=== PATIENT | female | born 1945 | race Caucasian/White ===

== ENCOUNTER 2020-09-03 11:50 | Inpatient (IN) ==
[2020-09-03] MEDS ORDERED: Ondansetron 4 MG/2 ML VIAL IVP ONE (12:12)
[2020-09-03] MEDS ORDERED: 0.9 % Sodium Chloride 1,000 ML IVC ONE (12:12)
[2020-09-03 12:57] LABS: Basophils % 0.3 %; Eosinophils # 0.1 K/mcL (0.0-0.6); Hematocrit 38.2 % (35.3-44.9); Hemoglobin 12.8 g/dL (11.5-15.4); Immature Granulocytes % 0.6 % (0-4); Lymphocytes # 0.9 K/mcL (0.6-4.6); Lymphocytes % 6.5 %; Mean Corpuscular HGB Conc 33.5 g/dL (31.6-35.5); Mean Corpuscular Hemoglobin 29.7 pg (28.0-33.3); Mean Corpuscular Volume 88.6 fL (83.0-100.0); Mean Platelet Volume 9.8 fL (9.4-12.4); Monocytes # 1.4 K/mcL (0.0-1.3); Monocytes % 10.6 %; Neutrophils # 10.5 K/mcL (1.6-8.9); Platelet Count 355 K/mcL (140-400); Red Blood Count 4.31 M/mcL (3.82-4.97); Red Cell Distribution Width 14.2 % (11.5-14.5)
[2020-09-03] MEDS ORDERED: Isovue-370 500 ML BOTTLE IVP ONE (12:59)
[2020-09-03 13:28] LABS: Alanine Aminotransferase 122 Units/L (7-52); Albumin 3.9 g/dL (3.5-5.7); Alkaline Phosphatase 177 Units/L (34-104); Amylase 37 Units/L (29-103); Aspartate Amino Transferase 168 Units/L (13-39); BUN/Creatinine Ratio 25 (6-26); Bilirubin,Direct 0.2 mg/dL (0.0-0.2); Bilirubin,Indirect 0.4 mg/dL (0.0-1.0); Bilirubin,Total 0.6 mg/dL (0.3-1.0); Blood Urea Nitrogen 35 mg/dL (8-23); Calcium 9.2 mg/dL (8.6-10.3); Carbon Dioxide 28 mEq/L (23-29); Chloride 91 mEq/L (98-107); Globulin 3.8 g/dL (2.4-3.5); Glucose 91 mg/dL (70-105); Lipase 6 Units/L (11-82); Osmolality,Calculated 290 (280-300); Potassium 3.2 mEq/L (3.5-5.1); Sodium 136 mEq/L (136-145); Total Protein 7.7 g/dL (6.4-8.9); Troponin I < 0.03 ng/mL (< 0.04); eGFR For African Americans 44 (> 60); eGFR For Non-African Americans 37 (> 60)
[2020-09-03 13:40] LABS: Adenovirus Not Detected (Not Detect); Bordetella Pertussis Not Detected (Not Detect); Chlamydophila pneumoniae Not Detected (Not Detect); Coronavirus 229E Not Detected (Not Detect); Coronavirus HKU1 Not Detected (Not Detect); Coronavirus NL63 Not Detected (Not Detect); Coronavirus OC43 Not Detected (Not Detect); Human Metapneumovirus Not Detected (Not Detect); Human Rhinovirus/Enterovirus Not Detected (Not Detect); Influenza A Subtype 2009 H1 Not Detected (Not Detect); Influenza B Not Detected (Not Detect); Mycoplasma pneumoniae Not Detected (Not Detect); Parainfluenza Virus 1 Not Detected (Not Detect); Parainfluenza Virus 2 Not Detected (Not Detect); Parainfluenza Virus 3 Not Detected (Not Detect); Parainfluenza Virus 4 Not Detected (Not Detect); Respiratory Syncytial Virus Not Detected (Not Detect); SARS-CoV-2 Not Detected (Not Detect)
[2020-09-03] MEDS ORDERED: *HR* FentaNYL (PF) 100 MCG/2 ML VIAL IVP STA (13:45)
[2020-09-03 14:40] LABS: Bacteria,Urine Few per hpf (None-Few); Bilirubin,Urine Negative (Negative); Blood,Urine Negative (Negative); Clarity,Urine Turbid (Clear); Color,Urine Yellow (Yellow); Glucose,Urine (UA) Normal (Normal); Hyaline Casts,Urine Many per lpf (None Seen); Ketones,Urine 10 mg/dL (Negative); Leukocyte Esterase,Urine Large (Negative); Mucus,Urine Few per lpf (None-Few); Nitrite,Urine Negative (Negative); PH,Urine 5.5 pH Units (5.0-8.0); Protein,Urine 50 mg/dL (Neg-Trace); Renal Epithelial Cells,Urine Few per hpf (None-Few); Specific Gravity,Urine 1.021 (1.010-1.025); Squamous Epithelial Cell,Urine Moderate per hpf (None-Few); Transitional Epi Cells,Urine Few per hpf (None-Few); WBC,Urine 15-30 per hpf (0-3)
[2020-09-03] MEDS ORDERED: *HR* Promethazine 25 MG/ML VIAL IM ONE (15:49)
[2020-09-03] MEDS ORDERED: Naloxone 0.4 MG/ML INJ IVP PRN (17:02)
[2020-09-03] MEDS ORDERED: Mag Hydrox/Al Hydrox/Simeth 30 ML UDC PO PRN (17:02)
[2020-09-03] MEDS ORDERED: Melatonin 3 MG TABLET PO PRN (17:02)
[2020-09-03] MEDS: 0.9 % Sodium Chloride 1,000 ML IVC SCH (19:00)
[2020-09-03] MEDS: Ondansetron ODT 4 MG TAB.RAPDIS SL PRN (19:00)
[2020-09-03] MEDS: Pantoprazole 40 MG VIAL IVP SCH (19:00)
[2020-09-03] MEDS: cefTRIAXone 1,000 MG in Water for inj. (sterile) 10 ML IVP SCH (19:00)
[2020-09-03 19:25] LABS: Hepatitis B Surface Antigen Nonreactive (Nonreactive)
[2020-09-03 19:53] LABS: Hepatitis B Core IgM Nonreactive (Nonreactive)
[2020-09-03 19:54] LABS: Hepatitis A Antibody IgM Nonreactive (Nonreactive); Hepatitis C Virus Antibody Nonreactive (Nonreactive)
[2020-09-04] MEDS: Pantoprazole 40 MG VIAL IVP SCH ×2 (05:20→17:59)
[2020-09-04] MEDS: 0.9 % Sodium Chloride 1,000 ML IVC SCH (05:20)
[2020-09-04 05:41] LABS: Hematocrit 33.1 % (35.3-44.9); Mean Corpuscular HGB Conc 32.3 g/dL (31.6-35.5); Mean Corpuscular Volume 89.7 fL (83.0-100.0); Mean Platelet Volume 9.5 fL (9.4-12.4); Platelet Count 290 K/mcL (140-400); Red Blood Count 3.69 M/mcL (3.82-4.97); Red Cell Distribution Width 14.2 % (11.5-14.5); White Blood Count 12.7 K/mcL (4.3-11.1)
[2020-09-04 05:43] LABS: Hemoglobin 10.7 g/dL (11.5-15.4)
[2020-09-04 06:04] LABS: Alanine Aminotransferase 106 Units/L (7-52); Albumin 3.3 g/dL (3.5-5.7); Albumin/Globulin Ratio 1.1 (1.1-2.2); Alkaline Phosphatase 156 Units/L (34-104); Aspartate Amino Transferase 154 Units/L (13-39); BUN/Creatinine Ratio 29 (6-26); Bilirubin,Total 0.5 mg/dL (0.3-1.0); Blood Urea Nitrogen 30 mg/dL (8-23); Calcium 8.5 mg/dL (8.6-10.3); Carbon Dioxide 28 mEq/L (23-29); Chloride 98 mEq/L (98-107); Globulin 3.1 g/dL (2.4-3.5); Glucose 94 mg/dL (70-105); Osmolality,Calculated 290 (280-300); Potassium 3.8 mEq/L (3.5-5.1); Sodium 137 mEq/L (136-145); Total Protein 6.4 g/dL (6.4-8.9); eGFR For African Americans > 60 (> 60); eGFR For Non-African Americans 51 (> 60)
[2020-09-04] MEDS: Ondansetron ODT 4 MG TAB.RAPDIS SL PRN ×2 (08:30→16:46)
[2020-09-04] MEDS: cefTRIAXone 1,000 MG in Water for inj. (sterile) 10 ML IVP SCH (18:00)
[2020-09-05 01:52] LABS: Hematocrit 31.9 % (35.3-44.9); Hemoglobin 10.8 g/dL (11.5-15.4); Mean Corpuscular HGB Conc 33.9 g/dL (31.6-35.5); Mean Corpuscular Volume 88.6 fL (83.0-100.0); Mean Platelet Volume 9.3 fL (9.4-12.4); Platelet Count 264 K/mcL (140-400); Red Cell Distribution Width 14.5 % (11.5-14.5); White Blood Count 12.3 K/mcL (4.3-11.1)
[2020-09-05 02:12] LABS: BUN/Creatinine Ratio 28 (6-26); Blood Urea Nitrogen 25 mg/dL (8-23); Calcium 8.5 mg/dL (8.6-10.3); Carbon Dioxide 28 mEq/L (23-29); Chloride 98 mEq/L (98-107); Glucose 89 mg/dL (70-105); Osmolality,Calculated 290 (280-300); Potassium 3.9 mEq/L (3.5-5.1); Sodium 138 mEq/L (136-145); eGFR For African Americans > 60 (> 60); eGFR For Non-African Americans > 60 (> 60)
[2020-09-05] MEDS: Ondansetron ODT 4 MG TAB.RAPDIS SL PRN (02:48)
[2020-09-05] MEDS: Pantoprazole 40 MG VIAL IVP SCH ×2 (05:12→18:27)
[2020-09-05] MEDS: amLODIPine 5 MG TABLET PO SCH (09:24)
[2020-09-05] MEDS: Cyanocobalamin (B-12) 1,000 MCG TABLET PO SCH (09:24)
[2020-09-05] MEDS: Cholecalciferol (D-3) 1,000 UNIT (25MCG) TABLET PO SCH (09:24)
[2020-09-05] MEDS: Ascorbic Acid 500 MG TABLET PO SCH (09:24)
[2020-09-05] MEDS: Vitamin E 200 UNIT (90MG) CAPSULE PO SCH (09:24)
[2020-09-05] MEDS ORDERED: *HR* Propofol 200 MG/20 ML VIAL IVP ONE (10:59)
[2020-09-05] MEDS ORDERED: *HR* FentaNYL (PF) 100 MCG/2 ML VIAL ONE ×2 (10:59→11:56)
[2020-09-05] MEDS ORDERED: Lidocaine -MPF 2% 5 ML VIAL ONE (11:01)
[2020-09-05] MEDS ORDERED: *HR* Succinylcholine 200 MG/10 ML VIAL IVP ONE (11:01)
[2020-09-05] MEDS ORDERED: Lidocaine -MPF 4% 5 ML AMPUL ONE (11:01)
[2020-09-05] MEDS ORDERED: Ondansetron 4 MG/2 ML VIAL ONE (11:01)
[2020-09-05] MEDS ORDERED: Simethicone 40 MG/0.6 ML MLS IR ONE (11:30)
[2020-09-05] MEDS ORDERED: Albuterol 2.5 MG/3 ML NEBULIZER IH ONE (12:47)
[2020-09-05 15:54] LABS: Albumin 3.3 g/dL (3.5-5.7); Bilirubin,Direct 0.3 mg/dL (0.0-0.2); Bilirubin,Indirect 0.4 mg/dL (0.0-1.0); Bilirubin,Total 0.7 mg/dL (0.3-1.0); Globulin 3.2 g/dL (2.4-3.5); Total Protein 6.5 g/dL (6.4-8.9)
[2020-09-05] MEDS: Ondansetron 4 MG/2 ML VIAL IVP PRN (16:36)
[2020-09-05] MEDS: cefTRIAXone 1,000 MG in Water for inj. (sterile) 10 ML IVP SCH (18:27)
[2020-09-06 04:54] LABS: Hematocrit 30.5 % (35.3-44.9); Hemoglobin 10.3 g/dL (11.5-15.4); Mean Corpuscular HGB Conc 33.8 g/dL (31.6-35.5); Mean Corpuscular Hemoglobin 29.9 pg (28.0-33.3); Mean Corpuscular Volume 88.7 fL (83.0-100.0); Mean Platelet Volume 10.2 fL (9.4-12.4); Platelet Count 283 K/mcL (140-400); Red Blood Count 3.44 M/mcL (3.82-4.97); Red Cell Distribution Width 14.7 % (11.5-14.5); White Blood Count 14.7 K/mcL (4.3-11.1)
[2020-09-06] MEDS: Pantoprazole 40 MG VIAL IVP SCH ×2 (05:05→18:03)
[2020-09-06 05:07] LABS: Alanine Aminotransferase 149 Units/L (7-52); Albumin/Globulin Ratio 0.9 (1.1-2.2); Alkaline Phosphatase 216 Units/L (34-104); Aspartate Amino Transferase 249 Units/L (13-39); BUN/Creatinine Ratio 31 (6-26); Bilirubin,Total 0.7 mg/dL (0.3-1.0); Blood Urea Nitrogen 27 mg/dL (8-23); Calcium 8.8 mg/dL (8.6-10.3); Carbon Dioxide 28 mEq/L (23-29); Chloride 100 mEq/L (98-107); Globulin 3.2 g/dL (2.4-3.5); Glucose 77 mg/dL (70-105); Osmolality,Calculated 290 (280-300); Potassium 3.7 mEq/L (3.5-5.1); Sodium 138 mEq/L (136-145); Total Protein 6.2 g/dL (6.4-8.9); eGFR For African Americans > 60 (> 60); eGFR For Non-African Americans > 60 (> 60)
[2020-09-06] MEDS: Ondansetron 4 MG/2 ML VIAL IVP PRN (07:47)
[2020-09-06] MEDS ORDERED: Isovue-370 500 ML BOTTLE IVP ONE (08:59)
[2020-09-06] MEDS: Cholecalciferol (D-3) 1,000 UNIT (25MCG) TABLET PO SCH (09:09)
[2020-09-06] MEDS: Ascorbic Acid 500 MG TABLET PO SCH (09:09)
[2020-09-06] MEDS: Vitamin E 200 UNIT (90MG) CAPSULE PO SCH (09:09)
[2020-09-06] MEDS: Cyanocobalamin (B-12) 1,000 MCG TABLET PO SCH (09:09)
[2020-09-06] MEDS: amLODIPine 5 MG TABLET PO SCH (09:09)
[2020-09-06] MEDS: *HR* Promethazine 25 MG/ML VIAL IM PRN ×2 (12:16→20:31)
[2020-09-06] MEDS ORDERED: Morphine Sulfate 2 MG/ML SYRINGE IVP ONE (15:51)
[2020-09-06 15:57] LABS: Carcinoembryonic Antigen 2.5 ng/mL (Less than 5.0)
[2020-09-06] MEDS: 0.9 % Sodium Chloride 1,000 ML IVC SCH (18:00)
[2020-09-06] MEDS: cefTRIAXone 1,000 MG in Water for inj. (sterile) 10 ML IVP SCH (18:04)
[2020-09-07] MEDS: Ondansetron 4 MG/2 ML VIAL IVP PRN ×2 (00:44→08:52)
[2020-09-07] MEDS ORDERED: Morphine Sulfate 2 MG/ML SYRINGE IVP ONE ×2 (02:42→10:01)
[2020-09-07 03:16] LABS: Hematocrit 34.1 % (35.3-44.9); Hemoglobin 11.4 g/dL (11.5-15.4); Mean Corpuscular HGB Conc 33.4 g/dL (31.6-35.5); Mean Corpuscular Hemoglobin 29.5 pg (28.0-33.3); Mean Corpuscular Volume 88.1 fL (83.0-100.0); Mean Platelet Volume 9.8 fL (9.4-12.4); Platelet Count 319 K/mcL (140-400); Red Blood Count 3.87 M/mcL (3.82-4.97); Red Cell Distribution Width 15.1 % (11.5-14.5); White Blood Count 17.8 K/mcL (4.3-11.1)
[2020-09-07 03:37] LABS: Alanine Aminotransferase 215 Units/L (7-52); Albumin 3.3 g/dL (3.5-5.7); Albumin/Globulin Ratio 0.9 (1.1-2.2); Alkaline Phosphatase 300 Units/L (34-104); Aspartate Amino Transferase 380 Units/L (13-39); BUN/Creatinine Ratio 36 (6-26); Bilirubin,Total 1.2 mg/dL (0.3-1.0); Blood Urea Nitrogen 33 mg/dL (8-23); Calcium 9.5 mg/dL (8.6-10.3); Carbon Dioxide 27 mEq/L (23-29); Chloride 101 mEq/L (98-107); Globulin 3.5 g/dL (2.4-3.5); Glucose 104 mg/dL (70-105); Osmolality,Calculated 300 (280-300); Potassium 3.6 mEq/L (3.5-5.1); Sodium 141 mEq/L (136-145); Total Protein 6.8 g/dL (6.4-8.9); eGFR For African Americans > 60 (> 60); eGFR For Non-African Americans > 60 (> 60)
[2020-09-07] MEDS: Pantoprazole 40 MG VIAL IVP SCH ×2 (05:20→17:44)
[2020-09-07] MEDS: 0.9 % Sodium Chloride 1,000 ML IVC SCH ×2 (08:31→21:25)
[2020-09-07] MEDS: amLODIPine 5 MG TABLET PO SCH (08:33)
[2020-09-07] MEDS: Cholecalciferol (D-3) 1,000 UNIT (25MCG) TABLET PO SCH (08:34)
[2020-09-07] MEDS: Cyanocobalamin (B-12) 1,000 MCG TABLET PO SCH (08:34)
[2020-09-07] MEDS: Vitamin E 200 UNIT (90MG) CAPSULE PO SCH (08:34)
[2020-09-07] MEDS: Ascorbic Acid 500 MG TABLET PO SCH (08:34)
[2020-09-07] MEDS ORDERED: *HR* Promethazine 25 MG/ML VIAL IM PRN (14:20)
[2020-09-07] MEDS: Ondansetron 4 MG/2 ML VIAL IVP SCH ×2 (14:35→21:24)
[2020-09-07] MEDS: Piperacillin/Tazobactam 3.375 GM in 0.9 % Sodium Chloride Mini Bag 100 ML IVPB SCH (16:33)
[2020-09-08] MEDS: Piperacillin/Tazobactam 3.375 GM in 0.9 % Sodium Chloride Mini Bag 100 ML IVPB SCH ×3 (00:42→17:46)
[2020-09-08] MEDS: Ondansetron 4 MG/2 ML VIAL IVP SCH ×4 (02:19→21:52)
[2020-09-08] MEDS: Pantoprazole 40 MG VIAL IVP SCH ×2 (05:02→20:38)
[2020-09-08 05:50] LABS: Basophils % 0.2 %; Hematocrit 32.6 % (35.3-44.9); Hemoglobin 10.6 g/dL (11.5-15.4); Immature Granulocytes % 1.8 % (0-4); Lymphocytes # 0.5 K/mcL (0.6-4.6); Lymphocytes % 3.1 %; Mean Corpuscular HGB Conc 32.5 g/dL (31.6-35.5); Mean Corpuscular Hemoglobin 28.7 pg (28.0-33.3); Mean Corpuscular Volume 88.3 fL (83.0-100.0); Monocytes # 1.8 K/mcL (0.0-1.3); Neutrophils # 13.9 K/mcL (1.6-8.9); Nucleated Red Blood Cells 0.5 /100 WBC (0); Platelet Count 274 K/mcL (140-400); Red Blood Count 3.69 M/mcL (3.82-4.97); Red Cell Distribution Width 15.4 % (11.5-14.5); Segmented Neutrophils % 83.9 %; White Blood Count 16.6 K/mcL (4.3-11.1)
[2020-09-08 06:12] LABS: Albumin 3.2 g/dL (3.5-5.7); Bilirubin,Direct 1.4 mg/dL (0.0-0.2); Bilirubin,Indirect 0.4 mg/dL (0.0-1.0); Bilirubin,Total 1.8 mg/dL (0.3-1.0); Calcium 9.5 mg/dL (8.6-10.3); Globulin 3.3 g/dL (2.4-3.5); Magnesium 2.1 mg/dL (1.6-2.6); Potassium 3.8 mEq/L (3.5-5.1); Total Protein 6.5 g/dL (6.4-8.9)
[2020-09-08] MEDS: 0.9 % Sodium Chloride 1,000 ML IVC SCH ×2 (07:44→18:12)
[2020-09-08] MEDS: amLODIPine 5 MG TABLET PO SCH (07:53)
[2020-09-08] MEDS: Cholecalciferol (D-3) 1,000 UNIT (25MCG) TABLET PO SCH (07:54)
[2020-09-08] MEDS: Vitamin E 200 UNIT (90MG) CAPSULE PO SCH (07:54)
[2020-09-08] MEDS: Cyanocobalamin (B-12) 1,000 MCG TABLET PO SCH (07:54)
[2020-09-08] MEDS: Ascorbic Acid 500 MG TABLET PO SCH (07:54)
[2020-09-08 08:21] LABS: Phosphorous 1.8 mg/dL (2.7-4.5)
[2020-09-08] MEDS: Morphine Sulfate 2 MG/ML SYRINGE IVP PRN ×2 (10:35→15:12)
[2020-09-08] MEDS ORDERED: D10% in Water 500 ML IVC PRN (10:52)
[2020-09-08] MEDS ORDERED: *HR* Dextrose 50 % in Water (Vial) 50 ML VIAL IVP PRN (12:25)
[2020-09-08] MEDS ORDERED: D5% in Water 1,000 ML IVC PRN (12:25)
[2020-09-08] MEDS ORDERED: Dextrose Gel 15 GM/37.5 ML TUBE PO PRN ×2 (12:25)
[2020-09-08] MEDS: Levothyroxine Sodium 100 MCG VIAL IVP SCH (13:57)
[2020-09-08] MEDS ORDERED: Potassium Phosphate 44 MEQ in 0.9 % Sodium Chloride 250 ML IVPB ONE (14:28)
[2020-09-08] MEDS ORDERED: Insulin LISPRO 300 UNITS/3 ML VIAL SUBQ SCH (16:00)
[2020-09-08] MEDS ORDERED: *HR* HYDROmorphone 20 MG/20 ML PCA IVC PRN (16:09)
[2020-09-08] MEDS ORDERED: Clinimix E 5%-15% SOLUTION 2,000 ML with MVI, adult with vitamin K 10 ML IVC SCH (17:00)
[2020-09-08] MEDS ORDERED: Scopolamine Patch 1.5 MG PATCH.TD72 TD SCH (19:00)
[2020-09-09] MEDS: Piperacillin/Tazobactam 3.375 GM in 0.9 % Sodium Chloride Mini Bag 100 ML IVPB SCH (00:18)
[2020-09-09] MEDS: Ondansetron 4 MG/2 ML VIAL IVP SCH ×4 (03:42→20:22)
[2020-09-09] MEDS: *HR* LORazepam 2 MG/ML VIAL IVP PRN ×4 (03:43→20:23)
[2020-09-09] MEDS: 0.9 % Sodium Chloride 1,000 ML IVC SCH (04:18)
[2020-09-09] MEDS: Pantoprazole 40 MG VIAL IVP SCH (06:08)
[2020-09-09 07:18] VITALS: BP 70/51; PULSE 68; TEMP 98.5; O2SAT 93
[2020-09-09] MEDS: Levothyroxine Sodium 100 MCG VIAL IVP SCH (08:44)
[2020-09-09] MEDS ORDERED: *HR* HYDROmorphone 20 MG/20 ML PCA IVC PRN (09:36)
[2020-09-09] MEDS ORDERED: Atropine 1% Opth Drops 100 DROP/5 ML BOTTLE SL PRN (09:48)
[2020-09-09] MEDS ORDERED: Acetaminophen 650 MG RECTAL SUPP RC PRN (09:57)
[2020-09-09] MEDS: *HR* HYDROmorphone (PF) 1 MG/ML SYRINGE IVP PRN ×2 (13:59→23:19)
[2020-09-09] MEDS: Haloperidol Lactate 5 MG/ML VIAL IVP PRN ×2 (17:20→22:14)
[2020-09-10] MEDS: *HR* LORazepam 2 MG/ML VIAL IVP PRN ×2 (00:08→01:21)
[2020-09-10] MEDS: *HR* HYDROmorphone (PF) 1 MG/ML SYRINGE IVP PRN (01:13)
[2020-09-10] MEDS: Ondansetron 4 MG/2 ML VIAL IVP SCH (03:11)
== END 2020-09-10 03:18 | disposition expired | DRG 374 ==
LOC: 3ANU 11:50 → EMEROOARM 11:50 → SUATTDRO 17:18 → 3ANU 18:10 → SUATTDRO 09-05 12:35 → 2ANU 09-08 18:33
PROVIDERS: ADMIT Family Medicine; ATTEND Internal Medicine
PROC: ENDOEBX (2020-09-05 13:30)
PROC: ENDOEUS (2020-09-05 13:30)